=== PATIENT | female | born 1980 | race Caucasian/White ===

== ENCOUNTER 2020-11-16 09:15 | Day surgery (SDC) | payer OTHER ==
[~2020-11-16] VITALS: Ht 180.3 cm; Wt 70.0 kg
[~2020-11-16 09:15] MED LIST: DOCU-131 PO; IBUP-1222 PO; OXYC1TAB12 PO
[2020-11-16] MEDS ORDERED: LEVO137T2 PO (09:55)
[2020-11-16] MEDS ORDERED: MULT-658 PO (09:55)
[2020-11-16 09:58] VITALS: BP 105/67
[2020-11-16] MEDS ORDERED: LACTATED RINGERS 1,000 ML IV SCH (10:00)
[2020-11-16] MEDS ORDERED: CHLORHEXIDINE 15 ML UDC PO ONE (10:00)
[2020-11-16 10:51] LABS: BASOPHILS % (AUTO) 0 % (0-1); EOSINOPHILS % (AUTO) 2 % (1-7); LYMPHOCYTES % (AUTO) 23 % (22-44); MEAN CORPUSCULAR HEMOGLOBIN 33.3 pg (27.0-34.8); MEAN CORPUSCULAR HGB CONC 33.6 g/dL (32.4-35.8); MEAN PLATELET VOLUME 7.6 fL (7.4-10.4); MONOCYTES % (AUTO) 10 % (2-9); NEUTROPHILS % (AUTO) 65 % (42-75); PLATELET COUNT 237 x10^3/uL (130-400); RED BLOOD COUNT 3.96 x10^6/uL (3.82-5.3); RED CELL DISTRIBUTION WIDTH 13.3 % (9.6-15.2)
[2020-11-16] MEDS ORDERED: SILVER NITRATE STICK TP ONE (12:22)
[2020-11-16] MEDS ORDERED: OXYTOCIN 10 UNITS/ML, 1ML ONE (12:22)
[2020-11-16] MEDS ORDERED: MISOPROSTOL 200 MCG TABLET ONE (12:22)
[2020-11-16] MEDS ORDERED: MIDAZOLAM 1 MG/ML, 2ML ONE (12:30)
[2020-11-16] MEDS ORDERED: FENTANYL PF 250 MCG/5ML ONE (12:30)
[2020-11-16] MEDS ORDERED: PROPOFOL 50 ML ONE (12:35)
[2020-11-16] MEDS ORDERED: KETOROLAC 30 MG/1 ML ONE (12:52)
[2020-11-16] MEDS ORDERED: CEFAZOLIN 1,000 MG ONE (12:52)
[2020-11-16] MEDS ORDERED: KETAMINE 10 MG/ML, 20ML ONE (12:52)
[2020-11-16] MEDS ORDERED: ONDANSETRON 2MG/ML, 2ML ONE (12:52)
[2020-11-16] MEDS ORDERED: DEXAMETHASONE 4 MG/ML, 1ML ONE (12:52)
[2020-11-16] MEDS ORDERED: LIDOCAINE/PF 1%, 30ML ONE (13:05)
[2020-11-16] MEDS ORDERED: ONDA4TAB7 PO (13:31)
[2020-11-16] MEDS ORDERED: FENTANYL PF 100 MCG/2ML IV PRN (14:00)
[2020-11-16] MEDS ORDERED: ALBUTEROL SULFATE 2.5 MG/3 ML NPPB PRN (14:00)
[2020-11-16] MEDS ORDERED: PROMETHAZINE 25 MG/ML, 1ML IVPush PRN (14:00)
[2020-11-16] MEDS ORDERED: DIPHENHYDRAMINE 50 MG/ML, 1ML IVPush PRN (14:00)
[2020-11-16] MEDS ORDERED: LABETALOL 5MG/ML, 20ML IV PRN (14:00)
[2020-11-16] MEDS ORDERED: HYDROmorphone 1 MG/ML, 1ML INJ IVPush PRN (14:00)
[2020-11-16] MEDS ORDERED: ACETAMINOPHEN 325 MG TABLET PO PRN (14:00)
[2020-11-16] MEDS ORDERED: RHOGAM FROM BLOOD BANK 1 NOTE EA IM/IV ONE (14:00)
[2020-11-16] MEDS ORDERED: MEPERIDINE/PF 25MG/0.5ML IVPush PRN (14:00)
[2020-11-16] MEDS ORDERED: OXYcodone 5 MG/5 ML ORAL.SOL UDC PO PRN (14:00)
== END 2020-11-16 15:20 | disposition home or self-care (01) ==
LOC: OR 09:15 → OUT 15:20
PROVIDERS: ATTEND Obstetrics & Gynecology
DX: O02.1 Missed abortion (principal); E06.3 Autoimmune thyroiditis; Z90.49 Acquired absence of other specified parts of digestive tract; Z98.890 Other specified postprocedural states; Z79.899 Other long term (current) drug therapy; Z79.82 Long term (current) use of aspirin; Z20.822 Contact with and (suspected) exposure to COVID-19; Z3A.11 11 weeks gestation of pregnancy
CPT/HCPCS: 36415; 59820; 84702; 85025; 86850; 86900; 87635; 88305; J2250; J2704; J2790; J3010; J7120; J0690; J1100; J1885; J2405; J2590